=== PATIENT | female | born 1975 | race Caucasian/White ===

== ENCOUNTER 2017-01-10 03:00 | Emergency (ER) | payer MEDICAID ==
[~2017-01-10] VITALS: Ht 160 cm; Wt 97.5 kg
[2017-01-10 03:14] VITALS: BP 135/76
--- NOTE | 2017-01-10 05:40 | NUR ---
Patient to bed 05.
--- NOTE | 2017-01-10 05:43 | NUR ---
41 Y/O F W/C/O ABD PAIN, N/V/D X LAST NIGHT. PT DENIES ANY FEVER. NO S/S OF DISTRESS NOTED AT THE MOMENT. ER MADE AWARE.
[2017-01-10] MEDS ORDERED: ONDANSETRON 4 MG ODT PO ONE (06:15)
--- NOTE | 2017-01-10 06:20 | NUR ---
PT SITTING ON CHAIR NEXT TO BED, DENIES ANY PAIN. NO S/S OF DISTRESS NOTED AT THE MOMENT.
[2017-01-10 06:50] VITALS: BP 123/76
--- NOTE | 2017-01-10 06:50 | NUR ---
Patient discharged with v/s stable. Written and verbal after care instructions given and explained. Patient alert, oriented and verbalized understanding of instructions. Ambulatory with steady gait. All questions addressed prior to discharge. ID band removed. Patient advised to follow up with PMD IN 2 DAYS OR RETURN TO ER IF CONDITION WORSENS. Rx of ZOFRAN given. Patient educated on indication of medication including possible reaction and side effects. Opportunity to ask questions provided and answered.
== END 2017-01-10 06:50 | disposition home or self-care (01) ==
LOC: MED 03:00
DX: K52.9 Noninfective gastroenteritis and colitis, unspecified (principal)
CPT/HCPCS: 99283; S0119

== ENCOUNTER 2018-03-27 20:09 | Emergency (ER) | payer MEDICAID ==
[~2018-03-27] VITALS: Ht 160 cm; Wt 107.0 kg
[2018-03-27 20:17] VITALS: BP 132/89
--- NOTE | 2018-03-27 20:23 | NUR ---
PT AMBULATED TO LOBBY WITH VSS.
--- NOTE | 2018-03-27 21:23 | NUR ---
PT TO ER BED10
--- NOTE | 2018-03-27 21:30 | NUR ---
42/F CAME IN ED, C/O 9/10 FRONTAL AND NASAL HEADACHE, X3 DAYS. PT ALSO REPORTS DIFFUSE/UPPER ABD PAIN. LBM TODAY, PT REPORTS N/V/D. LUNG SOUNDS CLEAR BL. BS ACTIVE X4, ABD SOFT ROUND SLIGHTLY TENDER TO TOUCH. PT REPORTS TAKING EXCEDRIN WITH NO RELIEF. REPORTS DAILY BP IN AM RANGING 140/70-157/70 DENIES HX DENIES RX
[2018-03-27] MEDS ORDERED: METOCLOPRAMIDE 10 MG/2 ML INJ VIAL IM ONE (22:10)
[2018-03-27] MEDS ORDERED: diphenhydrAMINE 50 MG CAP PO ONE (22:10)
--- NOTE | 2018-03-27 22:26 | NUR ---
PT AMBULATED TO RESTROOM WITH STEADY GAIT
[2018-03-27 23:50] LABS: APPEARANCE,URINE CLOUDY (CLEAR); BILIRUBIN,URINE NEGATIVE (NEGATIVE); BLOOD, URINE 3+ (NEGATIVE); COLOR,URINE YELLOW (YELLOW); LEUKOCYTE ESTERASE ,URINE NEGATIVE (NEGATIVE); NITRITE, URINE POSITIVE (NEGATIVE); UGLUCOSE NEGATIVE (NEGATIVE)
[2018-03-28 00:01] VITALS: BP 142/92
--- NOTE | 2018-03-28 00:01 | NUR ---
Patient discharged with v/s stable. Written and verbal after care instructions given and explained. Patient alert, oriented and verbalized understanding of instructions. Ambulatory with steady gait. All questions addressed prior to discharge. ID band removed. Patient advised to follow up with PMD. Rx of reglan, ibuprofen was given. Patient educated on indication of medication including possible reaction and side effects. Opportunity to ask questions provided and answered.
[2018-03-28 00:13] LABS: RBC,URINE TOO NUMEROUS TO COUN /HPF (0-5)
== END 2018-03-28 00:01 | disposition home or self-care (01) ==
LOC: MED 20:09
DX: G43.909 Migraine, unspecified, not intractable, without status migrainosus (principal)
CPT/HCPCS: 70450; 81001; 81025; 87086; 87186; 96372; 99285; J2765; Q0163

== ENCOUNTER 2019-03-26 20:45 | Emergency (ER) | payer SELFPAY ==
[~2019-03-26] VITALS: Ht 157.5 cm; Wt 97.5 kg
[2019-03-26 21:01] VITALS: BP 156/90
--- NOTE | 2019-03-26 21:01 | NUR ---
PT AMBULATED TO BED 2.
--- NOTE | 2019-03-26 21:06 | NUR ---
PT CAME TO ER FOR X3 INSECT BITES ON RIGHT FOOT, FEVER AND CHILLS SINCE TODAY. ORAL TEMPERATURE 102.9. PT ALSO HAS GENERALIZED BODY ACHES. DENIES N/V/D. NKA. NO MED HX. SAFETY MEASURES IN PLACE. WAITING FOR ERMD TO EVALUATE PT.
[2019-03-26] MEDS ORDERED: IBUPROFEN 600 MG TAB PO STA (21:11)
[2019-03-26] MEDS ORDERED: ACETAMINOPHEN EXTRA STRENGTH 500 MG TAB PO STA (21:11)
--- NOTE | 2019-03-26 21:20 | NUR ---
ERMD AT BEDSIDE
--- NOTE | 2019-03-26 21:44 | NUR ---
Patient discharged with v/s stable. Written and verbal after care instructions given and explained. Pt instructed to using cooling measures, rest and drink plenty of fluids. Patient alert, oriented and verbalized understanding of instructions. Ambulatory with steady gait. All questions addressed prior to discharge. ID band removed. Patient advised to follow up with PMD. Rx of IBUPROFEN was given. Patient educated on indication of medication including possible reaction and side effects. Opportunity to ask questions provided and answered.
[2019-03-26 21:46] VITALS: BP 156/90
== END 2019-03-26 21:45 | disposition home or self-care (01) ==
LOC: MED 20:45
DX: S90.861A Insect bite (nonvenomous), right foot, initial encounter (principal); K52.9 Noninfective gastroenteritis and colitis, unspecified; W57.XXXA Bitten or stung by nonvenomous insect and other nonvenomous arthropods, initial encounter; Y92.89 Other specified places as the place of occurrence of the external cause; Y93.89 Activity, other specified; Y99.8 Other external cause status
CPT/HCPCS: 99283

== ENCOUNTER 2019-10-02 08:46 | Emergency (ER) | payer SELFPAY ==
[~2019-10-02] VITALS: Ht 162.6 cm; Wt 112.0 kg
[2019-10-02 08:57] VITALS: BP 141/81
[2019-10-02 09:09] VITALS: BP 141/81
== END 2019-10-02 09:10 | disposition home or self-care (01) ==
LOC: MED 08:46
DX: J02.8 Acute pharyngitis due to other specified organisms (principal); B97.89 Other viral agents as the cause of diseases classified elsewhere; H92.02 Otalgia, left ear
CPT/HCPCS: 99283

== ENCOUNTER 2020-05-14 23:21 | Emergency (ER) | payer SELFPAY ==
[~2020-05-14] VITALS: Ht 160 cm; Wt 104.3 kg
[2020-05-14 23:44] VITALS: BP 142/82
--- NOTE | 2020-05-14 23:46 | NUR ---
triaged and waiting in lobby.
--- NOTE | 2020-05-15 | NUR ---
To ED bed 07
--- NOTE | 2020-05-15 00:07 | NUR ---
44 Y/O FEMALE BIB SELF FOR C/O VAGINAL BLEEDING AND SHARP PELVIC PAIN 03/27. PT STATES SHE HAS BEEN HAVING THIS SINCE LAST TUESDAY. SHE FURTHER REPORTS CHANGING 3 [facility]IT[facility] [place] IN A PERIOD OF 12 HRS. REPORTS TAKING OTC MEDS FOR PAIN BUT WITH INEFFECTIVE RESULTS. LMP ON 04/01/20. SHE DENIES HAVING ANY FOUL ODOR OR PAIN ON URINATION. PT PLACED ON CRAFT ARTIST AND BED LOCKED & LOWEST POSITION. MEDHX: DENIES ALLX: DARRELLA
[2020-05-15 00:17] LABS: BASOPHILS # (AUTO) 0.1 K/uL (0.00-0.22); BASOPHILS % (AUTO) 1.2 % (0.0-2.0); EOSINOPHILS # (AUTO) 0.2 K/uL (0-0.4); HEMATOCRIT 32.4 % (36-48); HEMOGLOBIN 10.8 g/dL (12.0-16.0); LYMPHOCYTES # (AUTO) 3.2 K/uL (2.5-16.5); LYMPHOCYTES % (AUTO) 38.4 % (20.5-51.1); MEAN CORPUSCULAR HEMOGLOBIN 27 pg (27-31); MEAN CORPUSCULAR HGB CONC 33 g/dL (33-37); MEAN CORPUSCULAR VOLUME 80.1 fL (80-94); MONOCYTES # (AUTO) 0.5 K/uL (0.8-1.0); MONOCYTES % (AUTO) 5.5 % (1.7-9.3); NEUTROPHILS # (AUTO) 4.5 K/uL (1.8-7.7); NEUTROPHILS % (AUTO) 52.9 % (42.2-75.2); PLATELET COUNT (AUTO) 294 K/uL (140-450); RED BLOOD CELL COUNT(AUTO) 4.04 MIL/uL (4.20-5.40); RED CELL DISTRIBUTION WIDTH 15.2 % (11.6-13.7); WHITE BLOOD COUNT (AUTO) 8.4 K/uL (4.8-10.8)
--- NOTE | 2020-05-15 00:20 | NUR ---
LAB AT BEDSIDE.
[2020-05-15 00:28] LABS: BILIRUBIN,URINE NEGATIVE (NEGATIVE); BLOOD, URINE 3+ (NEGATIVE); LEUKOCYTE ESTERASE ,URINE NEGATIVE (NEGATIVE); NITRITE, URINE NEGATIVE (NEGATIVE); UGLUCOSE 2+ (NEGATIVE)
[2020-05-15 00:30] LABS: APPEARANCE,URINE BLOODY (CLEAR); COLOR,URINE BLOODY (YELLOW); RBC,URINE TOO NUMEROUS TO COUN /HPF (0-5); WBC,URINE 0-5 /HPF (0-5)
[2020-05-15 00:38] LABS: ALBUMIN 3.3 g/dL (3.4-5.0); ANION GAP 12.3 (8-16); CARBON DIOXIDE 27.6 mmol/L (21-32); CREATININE 0.7 mg/dL (0.6-1.3); POTASSIUM 3.9 mmol/L (3.5-5.1); TOTAL BILIRUBIN 0.2 mg/dL (0.0-1.0)
--- NOTE | 2020-05-15 01:12 | NUR ---
ERMD AT BEDSIDE.
[2020-05-15] MEDS ORDERED: KETOROLAC 30 MG/ML VIAL IM ONE (01:20)
[2020-05-15] MEDS ORDERED: ACETAMINOPHEN EXTRA STRENGTH 500 MG TAB PO ONE (01:20)
--- NOTE | 2020-05-15 01:50 | NUR ---
Pelvic exam performed by ER MD Chairez with at bedside for entire examination. Patient tolerated pelvic exam. Patient assisted to position of comfort after examination. Female nurse Shawna PAULINO present during the procedure.
[2020-05-15 02:15] VITALS: BP 104/52
== END 2020-05-15 02:15 | disposition home or self-care (01) ==
LOC: MED 23:21
DX: N94.6 Dysmenorrhea, unspecified (principal); N92.0 Excessive and frequent menstruation with regular cycle
CPT/HCPCS: 36415; 80053; 81001; 81025; 85025; 86900; 86901; 96372; 99283; J1885; 81002

== ENCOUNTER 2022-03-11 11:00 | Emergency (ER) | payer MEDICAID ==
[~2022-03-11] VITALS: Ht 162.6 cm; Wt 94.8 kg
[2022-03-11 11:03] VITALS: BP 121/60
--- NOTE | 2022-03-11 11:13 | NUR ---
Pt ambulated to bed 06. Urine collected.
--- NOTE | 2022-03-11 11:15 | NUR ---
46 y/o F BIB self from home c/o vaginal bleeding since 0500 today. Patient A&Ox4, ambulatory, with Spna[employer] intrepreter Joan #[phone], states 12 weeks c/o light serosanguinous bleeding when wiping. Patient denies blood clots with bleeding. Pt also states intermittent intermittent low pelvic pain 1/10 x a few days. Denies n/v/d, dysuria, urinary symptoms. Denies meds today. Bed locked in lowest position, side rails x 1. Pt placed into gown and urin collected. PMH: HTN, DM Meds: metformin, losartan Sx: 2 C-sections NKDA
--- NOTE | 2022-03-11 11:31 | NUR ---
Lab at bedside.
[2022-03-11 12:08] LABS: BASOPHILS % (AUTO) 0.4 % (0.0-2.0); EOSINOPHILS # (AUTO) 0.1 K/uL (0-0.4); EOSINOPHILS % (AUTO) 0.7 % (0.0-4.0); HEMATOCRIT 34.3 % (36-48); LYMPHOCYTES # (AUTO) 3.2 K/uL (2.5-16.5); LYMPHOCYTES % (AUTO) 34.2 % (20.5-51.1); MEAN CORPUSCULAR HEMOGLOBIN 24 pg (27-31); MEAN CORPUSCULAR HGB CONC 32 g/dL (33-37); MEAN CORPUSCULAR VOLUME 75.7 fL (80-94); MONOCYTES # (AUTO) 0.6 K/uL (0.8-1.0); MONOCYTES % (AUTO) 6.2 % (1.7-9.3); NEUTROPHILS # (AUTO) 5.4 K/uL (1.8-7.7); NEUTROPHILS % (AUTO) 58.5 % (42.2-75.2); PLATELET COUNT (AUTO) 329 K/uL (140-450); RED BLOOD CELL COUNT(AUTO) 4.53 MIL/uL (4.20-5.40); RED CELL DISTRIBUTION WIDTH 17.8 % (11.6-13.7); WHITE BLOOD COUNT (AUTO) 9.3 K/uL (4.8-10.8)
--- NOTE | 2022-03-11 12:23 | NUR ---
Ultrasound at bedside.
[2022-03-11 13:16] LABS: APPEARANCE,URINE CLOUDY (CLEAR); BILIRUBIN,URINE NEGATIVE (NEGATIVE); BLOOD, URINE NEGATIVE (NEGATIVE); COLOR,URINE OTHER (YELLOW); LEUKOCYTE ESTERASE ,URINE NEGATIVE (NEGATIVE); NITRITE, URINE NEGATIVE (NEGATIVE); UGLUCOSE NEGATIVE (NEGATIVE)
[2022-03-11] MEDS ORDERED: ACET-10509 PO (13:38)
[2022-03-11 14:15] VITALS: BP 146/74
--- NOTE | 2022-03-11 14:15 | NUR ---
Patient discharged with v/s stable. Written and verbal after care instructions given. Patient alert, oriented and verbalized understanding of instructions. Ambulatory with steady gait. All questions addressed prior to discharge. ID band removed. Patient advised to follow up with PMD. Rx of Acetaminophen given. Opportunity to ask questions provided and answered. WORK NOTE HANDED TO PATIENT.
--- NOTE | 2022-03-11 14:16 | NUR ---
The patient's care was reviewed and supervised by Yolette Stafford RN.
== END 2022-03-11 14:15 | disposition home or self-care (01) ==
LOC: MED 11:00
DX: O20.0 Threatened abortion (principal); O24.111 Pre-existing type 2 diabetes mellitus, in pregnancy, first trimester; O10.911 Unspecified pre-existing hypertension complicating pregnancy, first trimester; Z3A.08 8 weeks gestation of pregnancy; Z79.899 Other long term (current) drug therapy
CPT/HCPCS: 36415; 76817; 81003; 81025; 84702; 85025; 86900; 86901; 99284; Q0092

== ENCOUNTER 2024-03-18 09:20 | Emergency (ER) | payer MEDICAID ==
[~2024-03-18] VITALS: Ht 158.8 cm; Wt 98.0 kg
[~2024-03-18 09:20] MED LIST: ACET500T99 PO
[2024-03-18 09:28] VITALS: BP 156/87; PULSE 63; RESP 16; TEMP 97.1; O2SAT 98
--- NOTE | 2024-03-18 09:44 | NUR ---
48 year old female with a past medical history of diabetes, presents to the ED with the chief complaint of pelvic pain radiating to the right flank since this morning. She states the pain has gradually gotten worse. Also endorses urinary frequency and hematuria. Denies fever or chills. Notes one episode of nonbloody emesis. Denies abdominal pain. Denies abnormal vaginal discharge. States that she is currently on her menstrual cycle. Call light with in reach; made aware of status Pmhx dm2 Allergies nka
[2024-03-18 09:58] LABS: BILIRUBIN,URINE 1+ (NEGATIVE); BLOOD, URINE 3+ (NEGATIVE); LEUKOCYTE ESTERASE ,URINE NEGATIVE (NEGATIVE); NITRITE, URINE POSITIVE (NEGATIVE); PH,URINE 5.5 (5.0-9.0); PROTEIN,URINE 2+ (NEGATIVE); UGLUCOSE NEGATIVE (NEGATIVE)
[2024-03-18 09:59] LABS: APPEARANCE,URINE SLIGHTLY BLOODY (CLEAR)
[2024-03-18 10:00] LABS: COLOR,URINE STRAW (YELLOW)
[2024-03-18 10:08] LABS: BACTERIA,URINE 10-30 (MOD) /HPF (None Seen); RBC,URINE 20-50 /HPF (0-5)
[2024-03-18 10:09] LABS: ICTOTEST NEGATIVE (NEGATIVE); SQUAMOUS EPITHELIAL CELL,UR 4-10 (MOD) /LPF (0-3 (FEW))
[2024-03-18] MEDS: KETOROLAC 30 MG/ML VIAL IM ONE (10:12)
[2024-03-18] MEDS: ONDANSETRON 4 MG ODT PO ONE (10:13)
--- NOTE | 2024-03-18 10:14 | NUR ---
pt has been medicated per providers orders.
[2024-03-18] MEDS ORDERED: cefTRIAXone 1,000 MG VIAL ONE (10:29)
[2024-03-18] MEDS ORDERED: LIDOCAINE MPF 1% 5 ML ONE (10:30)
[2024-03-18] MEDS ORDERED: NAPR-337 PO (10:37)
[2024-03-18] MEDS ORDERED: SULF-59 PO (10:37)
[2024-03-18] MEDS: cefTRIAXone 1,000 MG in LIDOCAINE MPF 1% 2.1 ML IM ONE (10:40)
[2024-03-18] MEDS ORDERED: PHEN-1877 PO (10:44)
[2024-03-18] MEDS ORDERED: ONDA-188 PO (10:44)
[2024-03-18 11:04] VITALS: BP 147/82; PULSE 63; RESP 16; TEMP 97.1; O2SAT 98
--- NOTE | 2024-03-18 11:04 | NUR ---
dPatient discharged with v/s stable. Written and verbal after care instructions given and explained. Patient verbalized understanding. Ambulatory with steady gait. All questions addressed prior to discharge. Advised to follow up with PMD.
--- NOTE | 2024-03-18 11:05 | NUR ---
Chart checked and completed. The patient's care was reviewed and supervised by ROYAL VALENCIA RN.
== END 2024-03-18 10:57 | disposition home or self-care (01) ==
LOC: MED 09:20
DX: N30.01 Acute cystitis with hematuria (principal); E11.9 Type 2 diabetes mellitus without complications; I10 Essential (primary) hypertension; Z79.899 Other long term (current) drug therapy
CPT/HCPCS: 81001; 81025; 87086; 96372; 99284; J0696; J1885; J2001; Q0162

== ENCOUNTER 2024-03-30 12:33 | Emergency (ER) | payer MEDICAID ==
[~2024-03-30] VITALS: Ht 160 cm; Wt 93.2 kg
[~2024-03-30 12:33] MED LIST changes: +NAPR-337 PO; +ONDA-188 PO; +PHEN-1877 PO; +SULF-59 PO
[2024-03-30 12:55] VITALS: BP 135/85; PULSE 77; RESP 18; TEMP 97.5; O2SAT 98
[2024-03-30 13:00] VITALS: O2SAT 98
[2024-03-30 14:21] LABS: APPEARANCE,URINE CLEAR (CLEAR); BILIRUBIN,URINE NEGATIVE (NEGATIVE); BLOOD, URINE 2+ (NEGATIVE); COLOR,URINE YELLOW (YELLOW); LEUKOCYTE ESTERASE ,URINE NEGATIVE (NEGATIVE); NITRITE, URINE NEGATIVE (NEGATIVE); PROTEIN,URINE NEGATIVE (NEGATIVE); UGLUCOSE NEGATIVE (NEGATIVE); UROBILINOGEN,URINE 0.2 EU/dL (0.2 - 1)
[2024-03-30 15:20] LABS: BASOPHILS % (AUTO) 0.2 % (0.0-2.0); EOSINOPHILS # (AUTO) 0.1 K/uL (0-0.4); EOSINOPHILS % (AUTO) 0.8 % (0.0-4.0); HEMATOCRIT 38.1 % (36-48); HEMOGLOBIN 12.4 g/dL (12.0-16.0); LYMPHOCYTES % (AUTO) 25.3 % (20.5-51.1); MEAN CORPUSCULAR HEMOGLOBIN 26 pg (27-31); MEAN CORPUSCULAR HGB CONC 33 g/dL (33-37); MEAN CORPUSCULAR VOLUME 80.5 fL (80-94); MONOCYTES # (AUTO) 0.6 K/uL (0.8-1.0); MONOCYTES % (AUTO) 4.7 % (1.7-9.3); NEUTROPHILS # (AUTO) 8.2 K/uL (1.8-7.7); PLATELET COUNT (AUTO) 327 K/uL (140-450); RED BLOOD CELL COUNT(AUTO) 4.73 MIL/uL (4.20-5.40); RED CELL DISTRIBUTION WIDTH 15.9 % (11.6-13.7); WHITE BLOOD COUNT (AUTO) 11.8 K/uL (4.8-10.8)
[2024-03-30 15:27] LABS: ANION GAP 11.2 (8-16); CALCIUM 8.9 mg/dL (8.5-10.1); CARBON DIOXIDE 28.8 mmol/L (21-32); CREATININE 0.8 mg/dL (0.6-1.3)
[2024-03-30 15:32] LABS: BILIRUBIN,DIRECT 0.1 mg/dL (0.0-0.3); TOTAL BILIRUBIN 0.4 mg/dL (0.0-1.0); TOTAL PROTEIN, SERUM 7.3 g/dL (6.4-8.2)
[2024-03-30] MEDS ORDERED: ACET-8905 PO (15:47)
[2024-03-30] MEDS ORDERED: TAMS0.4C96 PO (15:47)
[2024-03-30] MEDS ORDERED: IBUP-2213 PO (15:47)
== END 2024-03-30 16:01 | disposition home or self-care (01) ==
LOC: MED 12:33
DX: N20.0 Calculus of kidney (principal); E11.9 Type 2 diabetes mellitus without complications; I10 Essential (primary) hypertension; Z98.890 Other specified postprocedural states; Z79.899 Other long term (current) drug therapy
CPT/HCPCS: 36415; 80048; 80076; 81003; 81025; 83690; 85025; 99284

== ENCOUNTER 2024-04-02 08:08 | Emergency (ER) | payer MEDICAID ==
[~2024-04-02] VITALS: Ht 165.1 cm; Wt 93.2 kg
[~2024-04-02 08:08] MED LIST changes: +ACET-8905 PO; +IBUP-2213 PO; +TAMS0.4C96 PO
[2024-04-02 08:25] VITALS: BP 158/60; PULSE 64; RESP 20; TEMP 97.8; O2SAT 99
[2024-04-02] MEDS: NACL 0.9% 1,000 ML IV SCH (09:01)
[2024-04-02] MEDS: ONDANSETRON 4 MG/2 ML VIAL IVP ONE (09:02)
[2024-04-02 09:06] LABS: BASOPHILS # (AUTO) 0.2 K/uL (0.00-0.22); BASOPHILS % (AUTO) 1.7 % (0.0-2.0); EOSINOPHILS % (AUTO) 0.4 % (0.0-4.0); HEMATOCRIT 39.4 % (36-48); HEMOGLOBIN 12.7 g/dL (12.0-16.0); LYMPHOCYTES # (AUTO) 0.9 K/uL (2.5-16.5); LYMPHOCYTES % (AUTO) 7.5 % (20.5-51.1); MEAN CORPUSCULAR HEMOGLOBIN 26 pg (27-31); MEAN CORPUSCULAR HGB CONC 32 g/dL (33-37); MONOCYTES # (AUTO) 0.2 K/uL (0.8-1.0); MONOCYTES % (AUTO) 1.4 % (1.7-9.3); NEUTROPHILS # (AUTO) 10.1 K/uL (1.8-7.7); PLATELET COUNT (AUTO) 330 K/uL (140-450); RED BLOOD CELL COUNT(AUTO) 4.86 MIL/uL (4.20-5.40); RED CELL DISTRIBUTION WIDTH 15.4 % (11.6-13.7); WHITE BLOOD COUNT (AUTO) 11.3 K/uL (4.8-10.8)
[2024-04-02] MEDS: KETOROLAC 30 MG/ML VIAL IVP ONE (09:10)
[2024-04-02 09:14] LABS: ANION GAP 13.8 (8-16); CALCIUM 8.9 mg/dL (8.5-10.1); CARBON DIOXIDE 27.2 mmol/L (21-32)
[2024-04-02 09:20] LABS: ALBUMIN 4.1 g/dL (3.4-5.0); BILIRUBIN,DIRECT 0.1 mg/dL (0.0-0.3); TOTAL BILIRUBIN 0.4 mg/dL (0.0-1.0); TOTAL PROTEIN, SERUM 7.6 g/dL (6.4-8.2)
[2024-04-02 09:24] LABS: BILIRUBIN,URINE NEGATIVE (NEGATIVE); BLOOD, URINE TRACE-L (NEGATIVE); COLOR,URINE YELLOW (YELLOW); LEUKOCYTE ESTERASE ,URINE NEGATIVE (NEGATIVE); NITRITE, URINE NEGATIVE (NEGATIVE); PROTEIN,URINE NEGATIVE (NEGATIVE); UGLUCOSE NEGATIVE (NEGATIVE); UROBILINOGEN,URINE 0.2 EU/dL (0.2 - 1)
[2024-04-02 09:28] LABS: APPEARANCE,URINE TURBID (CLEAR)
[2024-04-02 09:33] LABS: BACTERIA,URINE FEW /HPF (None Seen); RBC,URINE 0-5 /HPF (0-5); SQUAMOUS EPITHELIAL CELL,UR 4-10 (MOD) /LPF (0-3 (FEW)); WBC,URINE 0-5 /HPF (0-5)
[2024-04-02 09:34] LABS: MUCUS,URINE 1+ /LPF (None Seen)
[2024-04-02 11:07] VITALS: BP 145/64; PULSE 77; RESP 14; TEMP 98.1; O2SAT 100
== END 2024-04-02 11:07 | disposition home or self-care (01) ==
LOC: MED 08:08
DX: K80.20 Calculus of gallbladder without cholecystitis without obstruction (principal); N23 Unspecified renal colic; E11.9 Type 2 diabetes mellitus without complications; Z98.890 Other specified postprocedural states; Z79.899 Other long term (current) drug therapy; Z88.6 Allergy status to analgesic agent
CPT/HCPCS: 36415; 80048; 80076; 81001; 81025; 82948; 83690; 85025; 87086; 96361; 96374; 96375; 99284; J1885; J2405; J7030

== ENCOUNTER 2024-04-16 22:50 | Emergency (ER) | payer MEDICAID ==
[~2024-04-16] VITALS: Ht 160 cm; Wt 93.4 kg
[2024-04-16 23:22] VITALS: BP 161/88; PULSE 69; RESP 18; TEMP 97.6; O2SAT 98
[2024-04-17 00:41] LABS: APPEARANCE,URINE CLEAR (CLEAR); BILIRUBIN,URINE NEGATIVE (NEGATIVE); BLOOD, URINE 2+ (NEGATIVE); COLOR,URINE YELLOW (YELLOW); LEUKOCYTE ESTERASE ,URINE NEGATIVE (NEGATIVE); NITRITE, URINE NEGATIVE (NEGATIVE); PROTEIN,URINE NEGATIVE (NEGATIVE); UGLUCOSE NEGATIVE (NEGATIVE); UROBILINOGEN,URINE 0.2 EU/dL (0.2 - 1)
[2024-04-17 00:58] LABS: BACTERIA,URINE 10-30 (MOD) /HPF (None Seen); MUCUS,URINE 1+ /LPF (None Seen); WBC,URINE 0-5 /HPF (0-5)
[2024-04-17] MEDS: KETOROLAC 30 MG/ML VIAL IM ONE (01:14)
[2024-04-17 02:03] LABS: BASOPHILS # (AUTO) 0.1 K/uL (0.00-0.22); BASOPHILS % (AUTO) 0.7 % (0.0-2.0); EOSINOPHILS # (AUTO) 0.1 K/uL (0-0.4); EOSINOPHILS % (AUTO) 0.7 % (0.0-4.0); HEMATOCRIT 35.5 % (36-48); HEMOGLOBIN 11.7 g/dL (12.0-16.0); LYMPHOCYTES # (AUTO) 3.4 K/uL (2.5-16.5); MEAN CORPUSCULAR HEMOGLOBIN 27 pg (27-31); MEAN CORPUSCULAR HGB CONC 33 g/dL (33-37); MEAN CORPUSCULAR VOLUME 80.2 fL (80-94); MONOCYTES # (AUTO) 0.8 K/uL (0.8-1.0); MONOCYTES % (AUTO) 5.8 % (1.7-9.3); NEUTROPHILS # (AUTO) 9.2 K/uL (1.8-7.7); NEUTROPHILS % (AUTO) 67.8 % (42.2-75.2); PLATELET COUNT (AUTO) 314 K/uL (140-450); RED BLOOD CELL COUNT(AUTO) 4.42 MIL/uL (4.20-5.40); RED CELL DISTRIBUTION WIDTH 15.7 % (11.6-13.7); WHITE BLOOD COUNT (AUTO) 13.6 K/uL (4.8-10.8)
[2024-04-17 02:18] LABS: ANION GAP 8.5 (8-16); CARBON DIOXIDE 29.3 mmol/L (21-32); CREATININE 0.7 mg/dL (0.6-1.3); POTASSIUM 3.8 mmol/L (3.5-5.1)
[2024-04-17 02:22] LABS: ALBUMIN 3.4 g/dL (3.4-5.0); TOTAL BILIRUBIN 0.2 mg/dL (0.0-1.0); TOTAL PROTEIN, SERUM 6.2 g/dL (6.4-8.2)
[2024-04-17] MEDS: NACL 0.9% 1,000 ML IV ONE (02:25)
[2024-04-17] MEDS: ONDANSETRON 4 MG/2 ML VIAL IVP ONE (02:27)
[2024-04-17] MEDS: MORPHINE SULFATE 4 MG/ML SYR IVP ONE (02:30)
[2024-04-17] MEDS ORDERED: MIRABULK PO (04:55)
[2024-04-17 05:02] VITALS: BP 128/109; PULSE 70; RESP 18; TEMP 97.6; O2SAT 98
== END 2024-04-17 05:02 | disposition home or self-care (01) ==
LOC: MED 22:50
DX: K80.20 Calculus of gallbladder without cholecystitis without obstruction (principal); K59.00 Constipation, unspecified; N20.0 Calculus of kidney; R03.0 Elevated blood-pressure reading, without diagnosis of hypertension; E11.9 Type 2 diabetes mellitus without complications; Z98.890 Other specified postprocedural states; Z79.899 Other long term (current) drug therapy
CPT/HCPCS: 36415; 74177; 80048; 80076; 81001; 81025; 83690; 85025; 87086; 96361; 96372; 96374; 96375; 99285; J1885; J2270; J2405; J7030; Q9967

== ENCOUNTER 2024-04-26 12:53 | Emergency (ER) | payer MEDICAID ==
[~2024-04-26] VITALS: Ht 160 cm; Wt 93.4 kg
[~2024-04-26 12:53] MED LIST changes: +MIRABULK PO
[2024-04-26 13:08] VITALS: BP 144/86; PULSE 87; RESP 16; TEMP 97.7; O2SAT 98
[2024-04-26 14:15] LABS: BILIRUBIN,URINE NEGATIVE (NEGATIVE); BLOOD, URINE 2+ (NEGATIVE); COLOR,URINE YELLOW (YELLOW); LEUKOCYTE ESTERASE ,URINE NEGATIVE (NEGATIVE); NITRITE, URINE NEGATIVE (NEGATIVE); PROTEIN,URINE 1+ (NEGATIVE); UGLUCOSE NEGATIVE (NEGATIVE); UROBILINOGEN,URINE 0.2 EU/dL (0.2 - 1)
[2024-04-26 14:17] LABS: APPEARANCE,URINE SLIGHTLY HAZY (CLEAR)
[2024-04-26 14:21] LABS: BACTERIA,URINE 1+ /HPF (None Seen); MUCUS,URINE None Seen /LPF (None Seen); SQUAMOUS EPITHELIAL CELL,UR 4-10 (MOD) /LPF (0-3 (FEW)); WBC,URINE 0-5 /HPF (0-5)
[2024-04-26] MEDS: KETOROLAC 30 MG/ML VIAL IM ONE (14:36)
[2024-04-26] MEDS ORDERED: DOCU-299 PO (14:42)
[2024-04-26] MEDS ORDERED: PYR100 PO (14:42)
[2024-04-26] MEDS ORDERED: TAMS0.4C96 PO (14:42)
[2024-04-26] MEDS ORDERED: HYDR-5071 PO (14:42)
== END 2024-04-26 14:51 | disposition home or self-care (01) ==
LOC: MED 12:53
DX: N23 Unspecified renal colic (principal); E11.9 Type 2 diabetes mellitus without complications; Z79.899 Other long term (current) drug therapy; Z88.6 Allergy status to analgesic agent
CPT/HCPCS: 81001; 96372; 99283; J1885